=== PATIENT | male | born 1965 | race African-American/Black ===

== ENCOUNTER 2023-04-18 14:20 | Inpatient (IN) | payer OTHER ==
[2023-04-18 15:02] VITALS: BMI 23.1
[2023-04-18] MEDS ORDERED: POLYETHYLENE GLYCOL (HEALTHYLAX) 3350 17 GM PACKET PO PRN (17:02)
[2023-04-18] MEDS ORDERED: MAGNESIUM HYDROX 2400MG/30ML ORAL SUSPENSION 30 ML CUP PO PRN (17:02)
[2023-04-18] MEDS ORDERED: NICOTINE POLACRILEX 2 MG GUM BUC PRN (17:02)
[2023-04-18] MEDS ORDERED: BENZOCAINE/MENTHOL (CHLORASEPTIC ) LOZENGE MM PRN (17:02)
[2023-04-18] MEDS ORDERED: guaiFENesin 600 MG TABLET.ER (FP) PO PRN (17:02)
[2023-04-18] MEDS ORDERED: IBUPROFEN 400 MG TABLET (FP) PO PRN (17:02)
[2023-04-18] MEDS ORDERED: BENZONATATE 200 MG CAPSULE PO PRN (17:02)
[2023-04-18] MEDS ORDERED: NALOXONE HCL (KLOXXADO) 8 MG SPRAY NS PRN (17:02)
[2023-04-18] MEDS ORDERED: ACETAMINOPHEN 325 MG TABLET (FP) PO PRN (17:02)
[2023-04-18] MEDS ORDERED: MAG HYDROX/AL HYDROX/SIMETH 30 ML UNIT-DOSE CUP PO PRN (17:02)
[2023-04-18] MEDS ORDERED: NALOXONE HCL 0.4 MG/ML VIAL IM PRN (17:02)
[2023-04-18] MEDS ORDERED: IBUPROFEN 600 MG TABLET (FP) PO PRN (17:02)
[2023-04-18] MEDS ORDERED: LOPERAMIDE HCL 2 MG CAPSULE PO PRN (17:02)
[2023-04-18] MEDS ORDERED: TUBERCULIN PPD 5 TU/0.1ML VIAL ID ONE (21:40)
[2023-04-18] MEDS: TUBERCULIN PPD 5 TU/0.1ML SYRINGE (IN PATIENT USE ONLY) ID ONE (22:27)
[2023-04-18] MEDS: ALBUTEROL SO4 HFA INHALER IH SCH (23:04)
[2023-04-18] MEDS: THIAMINE HCL 100 MG TABLET (FP) PO SCH (23:35)
[2023-04-18] MEDS: MELATONIN 5 MG TABLETS PO SCH (23:35)
[2023-04-19] MEDS: PRENATAL VITAMINS W/ FOLIC ACID TABLET (FP) PO SCH (09:50)
[2023-04-19 09:58] LABS: HEMATOCRIT 24.8 % (35.4-49); HEMOGLOBIN 8.2 GM/dL (11.7-16.9); MCH 27.1 pg (25.7-33.7); MEAN CELL VOLUME 82.3 fl (80-96); MEAN PLT VOLUME 8.1 fl (7.5-11.1); PLATELET COUNT 382 10^3/uL (134-434); RBC 3.02 M/mm3 (4.00-5.60); WHITE BLOOD COUNT 5.7 K/mm3 (4.0-10.0)
[2023-04-19 10:13] LABS: CHLORIDE 108 mmol/L (98-107); SODIUM 138 mmol/L (136-145)
[2023-04-19 10:16] LABS: CALCIUM 8.7 mg/dL (8.5-10.1)
[2023-04-19 10:17] LABS: ANION GAP 3 mmol/L (4-13); BLOOD UREA NITROGEN 17.4 mg/dL (7-18); CO2 27 mmol/L (21-32); GLUCOSE,RANDOM 95 mg/dL (74-106)
[2023-04-19 10:20] LABS: SGOT/AST 11 U/L (15-37); SGPT/ALT 15 U/L (13-61)
[2023-04-19 10:22] LABS: BILIRUBIN,TOTAL 0.5 mg/dL (0.2-1); TOT PROT 6.2 g/dl (6.4-8.2)
[2023-04-19 10:24] LABS: ALK PHOS 56 U/L (45-117)
[2023-04-19 11:07] LABS: PH,URINE 5.5 (5.0-8.0); URINE APPEARANCE CLEAR; URINE BILIRUBIN NEGATIVE (NEGATIVE); URINE COLOR YELLOW; URINE GLUCOSE (UA) NEGATIVE (NEGATIVE); URINE KETONE NEGATIVE (NEGATIVE); URINE LEUK ESTERASE NEGATIVE (NEGATIVE); URINE NITRITE NEGATIVE (NEGATIVE); URINE PROTEIN NEGATIVE (NEGATIVE); URINE UROBILINOGEN 0.2 mg/dL (0.2-1.0)
[2023-04-20] MEDS: FERROUS SO4 325 MG TABLET (FP) PO SCH (10:23)
[2023-04-20] MEDS ORDERED: ALBUTEROL SO4 HFA INHALER IH PRN (14:07)
[2023-04-26] MEDS: PRENATAL VITAMINS W/ FOLIC ACID TABLET (FP) PO SCH (21:11)
[2023-04-26] MEDS: FERROUS SO4 325 MG TABLET (FP) PO SCH (21:11)
[2023-04-27] MEDS: hydrOXYzine PAMOATE 25 MG CAPSULE (FP) PO PRN (21:27)
[2023-05-07 06:49] VITALS: RESP 18
[2023-05-09 07:14] VITALS: BP 112/66; PULSE 60; TEMP 97.5
== END 2023-05-09 09:55 | disposition home or self-care (01) | DRG 772 ==
LOC: YASAS 14:20 → Y5N 19:53
PROVIDERS: ADMIT Allergy & Immunology; ATTEND Psychiatry & Neurology Pain Medicine
PROC: HZ42ZZZ Group Counseling for Substance Abuse Treatment, Cognitive-Behavioral (ICD-10-PCS; principal; 2023-04-18)
DX: F10.20 Alcohol dependence, uncomplicated (principal); F14.20 Cocaine dependence, uncomplicated; F17.210 Nicotine dependence, cigarettes, uncomplicated; Z85.89 Personal history of malignant neoplasm of other organs and systems
CPT/HCPCS: 36415; 80053; 80307; 81003; 85027; 86593; 86780; 87635; 87811; 93005; 93010